=== PATIENT | female | born 1950 | race African-American/Black ===

== ENCOUNTER → 2024-02-03 10:58 | Outpatient (REF) | payer MEDICARE, OTHER, SELFPAY ==
[2024-02-03 12:25] LABS: ALT (SGPT) 17 U/L (0-35); AST (SGOT) 30 U/L (14-36); HDL Cholesterol 47 mg/dl; LDL Cholesterol, Calculated 75 mg/dl; Total Cholesterol 144 mg/dl (50-199); Triglyceride 110 mg/dl (10-149); Very Low Density Lipoprotein 22 mg/dl (0-30)
== END ==
LOC: REG 10:58
PROVIDERS: ATTENDING PHYSICIAN Internal Medicine Cardiovascular Disease; FAMILY PHYSICIAN Internal Medicine
DX: E78.5 Hyperlipidemia, unspecified (principal)
CPT/HCPCS: 36415; 80061; 84450; 84460